=== PATIENT | female | born 1995 | race Caucasian/White ===

== ENCOUNTER 2017-07-30 13:40 | Emergency (ER) | payer OTHER | END 2017-07-30 15:25 | disposition home or self-care (01) | LOC: FER 13:40 | DX: S20.211A Contusion of right front wall of thorax, initial encounter (principal); W55.12XA Struck by horse, initial encounter; Z79.899 Other long term (current) drug therapy | CPT/HCPCS: 71020; 71100; J1885 ==

== ENCOUNTER → 2021-08-06 | Day surgery (SDC) | payer OTHER ==
[~2021-08-06] VITALS: Ht 165.1 cm; Wt 49.9 kg
[~2021-08-06] MED LIST: BACTRIM DS TAB1 EACH PO; CLEOCIN300 MG PO; IBUPROFEN800 MG PO; KEFLEX500 MG PO; PERCOCET 5-3251 EACH PO; ROBAXIN750 MG PO; VOLTAREN **OUT50 MG PO
[2021-08-06 09:40] LABS: HCG (URINE) SCREEN NEGATIVE (NEGATIVE)
[2021-08-06 10:13] LABS: BASOPHIL 0.9 % (0-2); EOSINOPHIL 2.9 % (0-5); HCT 46.4 % (37.0-47.0); HGB 15.3 g/dl (12.5-16.0); LYMPHOCYTE 37.1 % (15-48); MCV 87.9 fL (78.0-100.0); MONOCYTE 8.5 % (0-12); MPV 10.9 fL (6.0-9.5); NEUTROPHIL 50.6 % (41-80); NRBC 0; PLT 142 K/uL (150-400); RBC 5.28 M/uL (4.20-5.40); RDW 11.8 % (11.5-14.0); WBC 6.5 K/uL (4.0-10.5)
== END | disposition home or self-care (01) ==
LOC: FAS 09:03
PROVIDERS: Oral & Maxillofacial Surgery
DX: K02.9 Dental caries, unspecified (principal); K04.7 Periapical abscess without sinus; Z85.6 Personal history of leukemia
CPT/HCPCS: D7140; D7210; 36415; 84703; 85025; J1100; J1170; J2250; J2405; J2704; J3010; J7120

== ENCOUNTER 2021-10-19 10:50 | Emergency (ER) | payer OTHER ==
[2021-10-19] MEDS ORDERED: MEDROL 4MG DOSEP4 MG PO (14:28)
[2021-10-19] MEDS ORDERED: CYCLOBENZAPRINE10 MG PO (14:28)
== END 2021-10-19 14:49 | disposition home or self-care (01) ==
LOC: FER 10:50
DX: S76.012A Strain of muscle, fascia and tendon of left hip, initial encounter (principal)
CPT/HCPCS: 72192; 73502